=== PATIENT | male | born 1990 | race Caucasian/White ===

== ENCOUNTER 2021-12-21 12:28 | Emergency (ER) | payer OTHER ==
[2021-12-21 13:21] LABS: BASOPHIL 0.4 % (0-2); EOSINOPHIL 0.4 % (0-5); HCT 41.4 % (42.0-52.0); HGB 14.3 g/dl (13.2-18.0); MCH 32.5 pg (25.0-31.0); MCHC 34.5 g/dL (32.0-36.0); MCV 94.1 fL (78.0-100.0); MONOCYTE 7.2 % (0-12); MPV 8.9 fL (6.0-9.5); NEUTROPHIL 75.4 % (41-80); NRBC 0; PLT 237 K/uL (150-400); RDW 13.3 % (11.5-14.0); WBC 8.4 K/uL (4.0-10.5)
[2021-12-21 13:32] LABS: INR 1.06 (0.9-1.2); PROTHROMBIN TIME 13.2 SECONDS (11.8-13.4); PTT 29.3 SECONDS (24.4-34.7)
[2021-12-21 13:33] LABS: D-DIMER 1.14 ug/mLFEU (0.00-0.41)
[2021-12-21 13:40] LABS: BUN/CREAT RATIO (CALC) 12.7 RATIO; CREATININE 0.79 mg/dL (0.67-1.17); POTASSIUM 4.1 mmol/L (3.5-5.1)
[2021-12-21 14:02] LABS: CORONAVIRUS 2019 SARS-COV-2 NEGATIVE (NEGATIVE); INFLUENZA A NAA NEGATIVE (NEGATIVE)
== END 2021-12-21 15:34 | disposition home or self-care (01) ==
LOC: FER 12:28
PROVIDERS: Nurse Practitioner Family
DX: R07.89 Other chest pain (principal); F17.210 Nicotine dependence, cigarettes, uncomplicated; Z20.822 Contact with and (suspected) exposure to COVID-19
CPT/HCPCS: 36415; 71046; 71275; 80048; 84484; 85025; 85379; 85610; 85730; 93005; J7030; Q9967; U0002